=== PATIENT | female | born 1970 | race Caucasian/White ===

== ENCOUNTER → 2018-01-14 16:55 | Outpatient (CLI) | payer BC, SELFPAY ==
--- NOTE | 2018-01-14 17:03 | DI.RAD.S_ITS ---
PROCEDURE: XR FOOT RT MIN 3V INDICATIONS: 47 year-old female with right foot pain after injury January 03, 2018. TECHNIQUE: 3 views of the foot were acquired. COMPARISON: None. FINDINGS: Bones: No fractures or dislocations. No suspicious bony lesions. Soft tissues: No tibiotalar joint effusion. Achilles tendon appears normal. IMPRESSION: No acute bony injuries of the right foot. Dictated by: Michoacano Felix M.D. on 01/14/2018 at 17:16 Approved by: Michoacano Felix M.D. on 01/14/2018 at 17:17
== END ==
PROVIDERS: Visit Provider Family Medicine
DX: S99.921A Unspecified injury of right foot, initial encounter (principal); M79.671 Pain in right foot
CPT/HCPCS: 73630